=== PATIENT | female | born 1985 | race African-American/Black ===

== ENCOUNTER 2019-06-09 17:27 | Inpatient (IN) ==
[~2019-06-09 17:27] MED LIST: D50W SYRINGE ONE; DEPO-PROVERA IM SCH; HALOPERIDOL DECANOATE 100 MG IM SCH
[2019-06-09] MEDS ORDERED: D50W SYRINGE IV PRN ×2 (17:31)
[2019-06-09] MEDS ORDERED: D5 NS 1,000 ML IV ONE (17:54)
[2019-06-09 17:57] LABS: URINE SOURCE CLEAN CATCH
[2019-06-09 18:00] LABS: BASO# 0.02 X1000 (0.0-0.2); BASO% 0.2 % (0.0-0.8); HEMATOCRIT 42.9 % (37.0-47.0); HEMOGLOBIN 13.9 g/dL (12.0-16.0); IMM GRAN# 0.03 X1000 (0.0-0.04); IMM GRAN% 0.3 % (0.0-0.5); LYMPH# 1.24 X1000 (1.2-3.4); LYMPH% 11.2 % (20.5-51.1); MCH 30.8 PG (27-31); MCHC 32.4 g/dL (33-37); MCV 94.9 FL (81-99); MONO# 0.53 X1000 (0.11-0.59); MONO% 4.8 % (1.7-9.3); NEUT# 9.24 X1000 (1.4-6.5); NEUT% 83.5 % (42.2-75.2); PLT 280 X1000 (130-400); RBC 4.52 XMIL (4.2-5.4); RDW 12.3 % (11.5-14.5); WBC 11.06 X1000 (4.8-10.8)
[2019-06-09 18:09] LABS: AGAP 12; ALBUMIN 3.8 g/dL (3.5-5.0); ALKALINE PHOSPHATASE 59 U/L (32-104); BUN 10 mg/dL (8-22); CALCIUM 8.7 mg/dL (8.8-10.2); CHLORIDE 105 mmol/L (98-107); COSMO 290; CREATININE 0.5 mg/dL (0.5-0.9); ESTIMATED GFR > 60; GLUCOSE 375 mg/dL (70-104); GOT 19 U/L (10-30); GPT 10 U/L (10-36); POTASSIUM 5.2 mmol/L (3.5-5.1); SODIUM 138 mmol/L (136-145); TCO2 21 mmol/L (25-35); TOTAL PROTEIN 6.8 g/dL (6.3-8.3)
[2019-06-09 18:22] LABS: BILIRUBIN URINE NEGATIVE (NEGATIVE); BLOOD URINE NEGATIVE (NEGATIVE); COLOR YELLOW; GLUCOSE URINE 500 mg/dL (NEGATIVE); KETONE URINE NEGATIVE (NEGATIVE); LEUKOCYTES URINE LARGE (NEGATIVE); NITRITE URINE NEGATIVE (NEGATIVE); PH URINE 8.5; PROTEIN URINE TRACE mg/dL (NEGATIVE); SP GRAVITY URINE 1.018; TURBIDITY URINE HAZY (CLEAR); UROBILINOGEN URINE NORMAL (NORMAL)
[2019-06-09 18:24] LABS: UR EPITHELIAL CELLS <10 /HPF (<10); URINE BACTERIA 4+ /HPF; URINE RBC <10 /HPF (<10); URINE WBC 20-40 /HPF (<10)
[2019-06-09] MEDS ORDERED: CLINDAMYCIN 600 MG/D5W 600 MG/50 ML IVPB IV ONE (18:29)
--- NOTE | 2019-06-09 18:30 | PROVIDER DOCUMENTATION ---
This chart was entered by Karla Friend Scribe, acting as scribe for Hung Gregorio MD. HPI-General Adult - General Chief Complaint: Low Blood Sugar Stated Complaint: Hypoglycemia Time Seen by Provider: 06/09/19 17:28 Source: EMS Allergies/Adverse Reactions: Patient Allergies Allergy/AdvReac Type Severity Reaction Status Date / Time cefaclor [From Ceclor] Allergy Unknown Verified 06/09/19 17:42 Home Medications: Home Medication List Medication Instructions Recorded Confirmed Last Taken Type Carbamazepine Chew [Tegretol] 100 mg PO BID 02/11/16 04/25/16 02/11/16 19:00 History Clonidine [Catapres] 0.1 mg PO DIRECTED PRN PRN 02/11/16 04/25/16 Unknown History Divalproex [Depakote] 1,500 mg PO TID 02/11/16 04/25/16 02/11/16 19:00 History Escitalopram Oxalate [Lexapro] 10 mg PO DAILY 02/11/16 04/25/16 02/11/16 07:00 History Haloperidol [Haldol] 10 mg PO BID 02/11/16 04/25/16 02/11/16 07:00 History Imipramine HCl 5 mg PO TID 02/11/16 04/25/16 02/11/16 19:00 History Insulin Degludec [Tresiba 40 unit SQ DAILY 02/11/16 04/25/16 02/11/16 19:00 History Flextouch U-200] Insulin Lispro [Humalog] 12 units SQ AC 02/11/16 04/25/16 02/11/16 17:00 History Lisinopril 2.5 mg PO DAILY 02/11/16 04/25/16 02/11/16 07:00 History Magnesium Citrate [Citrate of 300 ml PO ONCE #1 bottle 02/11/16 04/25/16 Unknown Rx Magnesia] Medroxyprogesterone Acetate 150 mg IM DIRECTED 02/11/16 04/25/16 02/11/16 07:00 History [Depo-Provera] Oxybutynin Chloride [Oxybutynin 5 mg PO BID 02/11/16 04/25/16 02/11/16 19:00 History Chloride ER] Pantoprazole [Protonix] 40 mg PO DAILY@0700 02/11/16 04/25/16 02/11/16 07:00 History Polyethylene Glycol 3350 [Miralax] 17 gm PO DAILY #14 powd.pack 02/11/16 04/25/16 Unknown Rx Propranolol HCl 10 mg PO DAILY 02/11/16 04/25/16 02/11/16 07:00 History Risperidone [Risperdal] 2 mg PO BID 02/11/16 04/25/16 02/11/16 19:00 History Simethicone [Gas-X] 125 mg PO TID #14 capsule 02/11/16 04/25/16 Unknown Rx Ibuprofen [Motrin] 400 mg PO Q6H PRN PRN #20 tablet 12/04/16 Unknown Rx - History of Present Illness -Gen Adult Nature of Presenting Problems: Patient is a 34 year old female who presents to the ED via EMS with low blood sugar. EMS states patient's FSBS was 26 on their arrival. long term workers states patient refused to eat lunch today. furniture lumber production worker reports patient's Lantus dose was reduced recently to 18u due to the patient's blood sugar dropping. History of cerebral palsy. High functioning. Quality of Pain: reports: none Severity: reports: mild Onset/Duration: reports: just prior to arrival Timing: reports: improving Context/Activities at Onset: reports: light activity Associated Symptoms: reports: denies symptoms Similar Symptoms Previously?: Yes Recently seen or treated by another doctor?: Yes - Diabetes Related Context Context: reports: low blood sugar Review of Systems - Adult - REVIEW OF SYSTEMS - ADULT ROS:: unobtainable per condition Constitutional: reports: no symptoms reported Eyes: reports: no symptoms reported Ears, Nose, Mouth & Throat: reports: no symptoms reported Cardiovascular: reports: no symptoms reported Respiratory: reports: no symptoms reported Gastrointestinal: reports: no symptoms reported Genitourinary: reports: no symptoms reported Musculoskeletal: reports: no symptoms reported Integumentary: reports: no symptoms reported Neurological: reports: no symptoms reported Psychiatric: reports: no symptoms reported Endocrine: reports: no symptoms reported Hematologic/Lymphatic: reports: no symptoms reported Allergic/Immunologic: reports: no symptoms reported All Other Systems: Reviewed and Negative Past History - Adult - PAST MEDICAL HISTORY-ADULT Review of Records: reports: Old Records Reviewed, Nursing Assessment Review, Medications Reviewed, Social history reviewed & non-contributory. Major Childhood Illnesses: reports: denies history Cardiovascular: reports: HTN Respiratory: reports: denies history Gastrointestinal: reports: IBS Obstetrical/Gynecological: reports: denies history Genitourinary: reports: denies history Musculoskeletal: reports: denies history Neurological: reports: Seizures/Epilepsy Psychiatric: reports: bipolar, schizophrenia Endocrine/Immune: reports: Diabetes Other Conditions: reports: other (cerebral palsy) - PRIOR SURGERIES/PROCEDURES Surgical/Procedure History: reports: reviewed, not pertinent - IMMUNIZATION STATUS Childhood Immunizations: See Nurse Assessment Flu Vaccine: See Nurse Assessment - FAMILY HISTORY Family History: reviewed, not pertinent - SOCIAL HISTORY Smoking: denies Substance Use: denies Living Situation: group Physical Exam-General - PHYSICAL EXAM-ADULT Initial Vital Signs Reviewed: Yes - CONSTITUTIONAL General Appearance: alert, no apparent distress, lethargic (INITALLY LETHARGIC A ND POORLY RESPONSIVE BUT BRIGHTENED UP QUICKLY AFTER IV ESTABLISHED AND D25 GIVEN.) - EYES Eyes: PERRL/EOMI - HEAD, EARS, NOSE, MOUTH & THROAT HENMT: normocephalic/atraumatic, moist mucous membranes - NECK Neck: full range of motion - RESPIRATORY Respiratory: chest non-tender, lungs clear, normal breath sounds - CARDIOVASCULAR Cardiovascular: regular rate, rhythm, no gallop, no murmur - GASTROINTESTINAL (ABDOMEN) Abdominal Exam: normal bowel sounds, non tender, soft - MUSCULOSKELETAL Extremity: normal inspection, no pedal edema - SKIN Integumentary: normal color, normal turgor, warm/dry - NEUROLOGIC Neurologic: pulper II-XII nml as tested, grossly normal, no motor/sensory deficits - PSYCHIATRIC Psych/Mental Status: normal mood/affect, oriented x 3, other (WAKING BACK UP, SOMEWHAT FEARFUL.) Progress - PLAN OF CARE/RESULTS Progress/Plan/Lab Results: Vital Signs - 8 hr 06/09/19 17:27 Temperature 96.2 F L Pulse Rate 93 H Respiratory Rate 21 Blood Pressure 101/72 O2 Sat by Pulse Oximetry 98 Orders Category Date Time Status FSBS/Accucheck Result Q15M Care 06/09/19 17:32 Active Hypoglycemia/FSBS <50 or Range of 50-70 PRN Care 06/09/19 17:32 Active Notify Physician ORDERED Care 06/09/19 17:32 Active Saline Loc DIRECTED Care 06/09/19 17:32 Active Dextrose 50% Syringe [D50w Syringe] Med 06/09/19 17:31 Active 25 ml IV PRN PRN Dextrose 50% Syringe [D50w Syringe] Med 06/09/19 17:14 Discontinued 50 ml .ROUTE .STK-MED ONE Dextrose 50% Syringe [D50w Syringe] Med 06/09/19 17:31 Active 50 ml IV PRN PRN Hypoglycemia Stat Oth 06/09/19 17:31 Ordered Result Diagrams: 06/09/19 17:40 06/09/19 17:40 - REASSESSMENT Reassessment #1 Time Reassessed: 18:29 Status: unchanged (clindamycin chosen for UTI as allergic to cefaclor) Departure - Departure Date of Disposition Decision: 06/09/19 Time of Disposition Decision: 18:27 DIAGNOSIS: Hypoglycemia due to insulin, UTI (urinary tract infection) Disposition: ADMITTED INPATIENT 09 Certified Medical Emergency: Emergent Condition: Stable - Critical Care Note This patient required my direct & personal management of CC.: No Attestation - Physician/ SYLVIA Attestation The physician spent face to face time with patient:: Yes Advanced Practice Provider documentation review:: Supervising physician onsite and consulted in the evaluation and care of this patient. The physician did have a face to face encounter with the patient. This chart was documented by the indicated scribe, (Karla Friend Scribe) and accurately reflects the services I performed and decisions made by me, Hung Delgadillo MD, as attested by the provider's signature.
[2019-06-09] MEDS ORDERED: D50W SYRINGE IV ONE (18:46)
[2019-06-09] MEDS ORDERED: ZOFRAN IV PRN (18:47)
[2019-06-09] MEDS ORDERED: TYLENOL PO PRN (18:47)
[2019-06-09] MEDS: ZOSYN 3.375 GM in NS 50 ML IV SCH (23:06)
[2019-06-10] MEDS: ZOSYN 3.375 GM in NS 50 ML IV SCH ×3 (01:07→12:59)
[2019-06-10] MEDS ORDERED: MOTRIN PO PRN (08:40)
[2019-06-10] MEDS ORDERED: ZYPREXA ZYDIS PO PRN (08:40)
[2019-06-10] MEDS ORDERED: MIRALAX PO PRN (08:40)
[2019-06-10] MEDS ORDERED: ROBITUSSIN-DM PO PRN (08:40)
[2019-06-10] MEDS ORDERED: IMODIUM PO PRN (08:40)
[2019-06-10] MEDS ORDERED: BENADRYL PO PRN (08:40)
[2019-06-10] MEDS ORDERED: DEPO-PROVERA IM SCH (09:00)
[2019-06-10] MEDS: TEGRETOL PO SCH ×2 (10:15→22:40)
[2019-06-10] MEDS: INDERAL PO SCH (10:15)
[2019-06-10] MEDS: HALDOL PO SCH (10:15)
[2019-06-10] MEDS: RISPERDAL PO SCH ×2 (10:16→22:39)
[2019-06-10] MEDS: LONITEN PO SCH (10:16)
[2019-06-10] MEDS: LEXAPRO PO SCH (10:16)
[2019-06-10] MEDS ORDERED: HUMALOG (PARKWAY) SUBQ SCH (11:00)
[2019-06-10] MEDS: HUMALOG (PARKWAY) SUBQ SCH ×3 (13:00→22:43)
--- NOTE | 2019-06-10 13:50 | Diag Imaging Result Doc PS360 ---
KUB ABDOMEN - 06/10/2019 INDICATION: Abd pain COMPARISON: 02/11/2016 FINDINGS: There are numerous very gas-distended loops of small bowel and colon. There is significant rectal stool impaction. There is a rectal stool ball measuring 8.4 cm. No free air. IMPRESSION: Significant rectal stool impaction. Diffuse hyperinflation of all the bowel suggest ileus or partial obstruction as a result. Electronically signed by Chuy Samayoa 06/10/2019 1:48 PM
--- NOTE | 2019-06-10 20:03 | PROGRESS NOTE ---
DATE: 06/10/2019 SUBJECTIVE: The patient this morning has no complaints. She has not eaten yet. PHYSICAL EXAM: Vital signs: Temperature 98 degrees, pulse 110, respiratory 18, BP 106/69. General: The patient is pleasant. She is in no respiratory distress. She is awake, alert. HEENT: Normocephalic. Neck: Supple. Cardiovascular: Regular rate. Chest: Clear, nonlabored. No wheezing. Abdomen: Soft, nondistended. Extremities: Moves all extremities. ASSESSMENT: 1. Presumed urinary tract infection. Currently, she is growing gram-negative rods per her culture. 2. Hypoglycemic episode. Certainly, could have contributed by her urinary tract infection causing her to not want to eat or drink. 3. Hypertension. 4. Diabetes. 5. Cerebral palsy. PLAN: We are going to continue the patient in the hospital. Continue antibiotics. We will restart her insulin if she eats breakfast and we will follow. We will recheck her labs in the morning to make sure that her hyperkalemia has resolved. cc: Quinn Krishna MD
--- NOTE | 2019-06-10 20:32 | HISTORY AND PHYSICAL ---
ADDENDUM: Patient seen and examined in the ER. She was noted to have blood sugars secondary to taking insulin without eating. HISTORY OF PRESENT ILLNESS: Patient is a 34-year-old female who presented to the hospital with hypoglycemic episode. Blood sugar was 26 upon arrival with EMS. long-term workers noted that the patient had taken her Lantus in the morning. Did not eat any breakfast, refused to eat lunch, and then at night when they checked her sugar it was low. ALLERGIES: Ceclor. MEDICATIONS: Do not have a current active medication list. We will adjust when the [facility] provides such. REVIEW OF SYSTEMS: Difficult to obtain from Ms. Broderick, although the [facility] denies any recent fevers, chills, cough, congestion. Denies any recent GI or issues. PAST MEDICAL HISTORY: Hypertension, IBS, history of seizures, bipolar, schizophrenia, diabetes, cerebral palsy. FAMILY HISTORY: Noncontributory. SOCIAL HISTORY: She does not smoke, drink, or use illicit substances. She currently is a resident of the [facility]. PHYSICAL EXAMINATION: VITAL SIGNS: Reviewed. Temperature 96 degrees, pulse 93, respiratory rate 20, BP 101/72, saturation 98% on room air. GENERAL: Patient is pleasant. She is awake. She is in no distress. HEENT: Normocephalic. NECK: Supple. CARDIOVASCULAR: Regular rate. No murmurs. CHEST: Clear, nonlabored. ABDOMEN: Soft, nondistended. EXTREMITIES: Moves all extremities. NEUROLOGIC: No changes. ASSESSMENT: 1. Significant hypoglycemia. Resolved. At the moment glucose is 375. 2. Diabetes. 3. Bipolar with schizophrenia. 4. Seizures. 5. Cerebral palsy. 6. Hypertension. PLAN: We are going to admit the patient in the hospital, place her on hypoglycemic protocol, continue to follow. We are going to hold her insulin tonight as it is essentially bedtime and she still is not eager to eat. We will continue to follow. cc: Quinn Krishna MD
[2019-06-10] MEDS: DDAVP PO SCH (22:37)
[2019-06-10] MEDS: DITROPAN XL PO SCH (22:38)
[2019-06-10] MEDS: DEPAKOTE PO SCH (22:40)
[2019-06-10] MEDS: ATIVAN PO SCH (22:40)
[2019-06-10] MEDS: CATAPRES PO SCH (22:41)
[2019-06-10] MEDS: LANTUS INSULIN SUBQ SCH (22:42)
[2019-06-11] MEDS: ZOSYN 3.375 GM in NS 50 ML IV SCH ×4 (00:46→20:39)
[2019-06-11 06:06] LABS: HEMATOCRIT 37.8 % (37.0-47.0); MCH 30.5 PG (27-31); MCHC 31.7 g/dL (33-37); MCV 95.9 FL (81-99); MPV 10.1 FL (7.4-10.4); RBC 3.94 XMIL (4.2-5.4); RDW 12.2 % (11.5-14.5); WBC 5.45 X1000 (4.8-10.8)
[2019-06-11 06:22] LABS: AGAP 11; ALBUMIN 3.4 g/dL (3.5-5.0); ALKALINE PHOSPHATASE 54 U/L (32-104); BUN 14 mg/dL (8-22); CALCIUM 8.5 mg/dL (8.8-10.2); CHLORIDE 103 mmol/L (98-107); COSMO 285; CREATININE 0.6 mg/dL (0.5-0.9); ESTIMATED GFR > 60; GLUCOSE 283 mg/dL (70-104); GOT 16 U/L (10-30); GPT 12 U/L (10-36); MAGNESIUM 1.7 mg/dL (1.5-2.7); POTASSIUM 4.7 mmol/L (3.5-5.1); SODIUM 137 mmol/L (136-145); TCO2 23 mmol/L (25-35); TOTAL PROTEIN 6.1 g/dL (6.3-8.3)
[2019-06-11] MEDS: DDAVP PO SCH ×2 (06:40→20:40)
[2019-06-11] MEDS: PROTONIX PO SCH (06:41)
[2019-06-11] MEDS: HUMALOG (PARKWAY) SUBQ SCH ×4 (06:44→22:56)
[2019-06-11] MEDS ORDERED: VITAMIN D PO SCH (09:00)
[2019-06-11] MEDS: HALDOL PO SCH (10:19)
[2019-06-11] MEDS: TEGRETOL PO SCH ×2 (10:19→20:39)
[2019-06-11] MEDS: INDERAL PO SCH (10:19)
[2019-06-11] MEDS: RISPERDAL PO SCH ×2 (10:19→20:40)
[2019-06-11] MEDS: LEXAPRO PO SCH (10:20)
[2019-06-11] MEDS: LONITEN PO SCH (10:20)
--- NOTE | 2019-06-11 18:39 | Diag Imaging Result Doc PS360 ---
EXAM: CT ABD/PELVIS W/PO AND IV CON - 06/11/2019 HISTORY: Ileus vs Obstruction TECHNIQUE: CT abdomen/pelvis with oral and intravenous contrast COMPARISON: 06/10/2019 KUB abdomen FINDINGS: Included sections of the lung bases show mild interstitial marking prominence and tiny pleural effusions. There are no substantial abnormalities of the liver, spleen, adrenal glands, or pancreas identified. The gallbladder is contracted, but there are no calcified gallstones or gross pericholecystic inflammation identified. The bilateral kidneys enhance homogeneously. There is no hydronephrosis. There are mildly prominent mesenteric lymph nodes. The stomach is distended with retained debris. There is diffuse distention of the colon. There is retained fecal debris in the rectum, but this appears to have decreased compared to the recent KUB abdomen. There is no discrete contact obstructing lesion identified. There is mild distention of proximal small bowel, but there is no discrete small bowel obstruction. There is passage of oral contrast to the colon. The appendix is not discretely visualized. There is a small amount of free fluid in the pelvis. There is no free air or abscess identified. There is no discrete pelvic mass identified. IMPRESSION: Distended stomach with retained debris. Diffuse distention of colon. No discrete colonic obstructing lesion identified. There is retained fecal debris in the rectum which appears to have decreased compared to recent KUB abdomen. Small amount of free fluid in pelvis. No free air. No abscess. Mildly prominent mesenteric lymph nodes, which can be seen with mesenteric adenitis. Mild prominence of pulmonary basilar interstitial markings and tiny pleural effusions. This exam was performed using automated exposure control, adjustment of mA or kV according to patient size, and/or use of iterative reconstruction technique. Electronically signed by Keo Allan 06/11/2019 6:37 PM
--- NOTE | 2019-06-11 19:22 | PROGRESS NOTE ---
DATE: 06/11/2019 SUBJECTIVE: Patient herself has no new complaints. Does have some constipation, but this seems to be chronic. OBJECTIVE: Vital signs: Reviewed. Temperature 97 degrees, pulse 92, respiratory rate 18, BP 126/74. General: Patient is pleasant, in no distress. HEENT: Normocephalic. Neck: Supple. CV: Regular rate. Chest: Clear. Abdomen: Soft. Extremities: Moves all extremities. ASSESSMENT: 1. Proteus mirabilis urinary tract infection, resistant to Macrobid, otherwise pansensitive. 2. Significant constipation, with retained fecal debris in the rectum which has somewhat decreased from the recent KUB. 3. Diabetes, with current hyperglycemia. She actually got admitted secondary to hypoglycemia. 4. Bipolar with schizophrenia. 5. Seizures. 6. Cerebral palsy. PLAN: We are going to continue the patient in the hospital today, watch her bowel habits. If that improves, hopefully she can discharge home tomorrow. cc: Quinn Krishna MD
[2019-06-11] MEDS: DITROPAN XL PO SCH (20:39)
[2019-06-11] MEDS: DEPAKOTE PO SCH (20:40)
[2019-06-11] MEDS: CATAPRES PO SCH (20:40)
[2019-06-11] MEDS: ATIVAN PO SCH (20:40)
[2019-06-11] MEDS: LANTUS INSULIN SUBQ SCH (22:57)
[2019-06-12] MEDS: ZOSYN 3.375 GM in NS 50 ML IV SCH ×2 (01:04→06:00)
[2019-06-12 05:12] VITALS: BP 120/73
[2019-06-12] MEDS: DDAVP PO SCH (06:30)
[2019-06-12] MEDS: PROTONIX PO SCH (06:30)
[2019-06-12] MEDS: HUMALOG (PARKWAY) SUBQ SCH ×3 (06:30→13:23)
[2019-06-12] MEDS: LEXAPRO PO SCH (10:32)
[2019-06-12] MEDS: LONITEN PO SCH (10:32)
[2019-06-12] MEDS: RISPERDAL PO SCH (10:33)
[2019-06-12] MEDS: HALDOL PO SCH (10:33)
[2019-06-12] MEDS: INDERAL PO SCH (10:33)
[2019-06-12] MEDS: TEGRETOL PO SCH (10:33)
--- NOTE | 2019-06-12 20:34 | DISCHARGE SUMMARY ---
ADMISSION DATE: 06/09/2019 DISCHARGE DATE: 06/12/2019 PRIMARY CARE PHYSICIAN: None. ADMISSION DIAGNOSES: 1. Significant hypoglycemia, resolved. 2. Bipolar with schizophrenia. 3. Seizures. 4. Cerebral palsy. 5. Hypertension. DISCHARGE DIAGNOSES: 1. Proteus mirabilis urinary tract infection, resistant to Macrobid. 2. Significant constipation with retained fecal debris in the rectum, which is somewhat decreased from the recent KUB. 3. Diabetes with hyperglycemia. She was admitted initially for hypoglycemia, bipolar with schizophrenia, seizures, and cerebral palsy summary. SUMMARY OF FINDINGS: This is a 34-year-old female who presents with a low blood sugar of 26 via EMS. Her electrical linesworker noted that she had taken her Lantus that morning but did not eat breakfast and refused to eat lunch and, that night when they checked her sugar, it was low. She was admitted, placed on our hypoglycemia protocol but became hyperglycemic. Her abdomen x-ray showed significant rectal stool impaction and diffuse hyperinflation of all the bowel, that suggested an ileus or partial obstruction so we obtained a CT of the abdomen and pelvis that showed an impression of a distended stomach with retained debris, diffuse distention of the colon, but no colonic obstruction identified. The retained fecal debris in the rectum appeared to have decreased compared to the recent KUB. No abscess so it is now felt that she can safely be discharged back to the correction today. DISCHARGE MEDICATIONS: Will include Tegretol 200 mg p.o. b.i.d., clonidine 0.1 mg p.o. at bedtime, desmopressin 0.1 mg p.o. daily and 0.2 mg p.o. at bedtime. Diphenhydramine 25 mg p.o. q.4 hours p.r.n., divalproex 1500 mg p.o. at bedtime, vitamin D2, 1200 mcg as directed, Lexapro 20 mg p.o. daily, Robitussin DM 10 mL p.o. q.4 hours p.r.n., Haldol Decanoate 100 mg IM q.30 days, Haldol 10 mg p.o. daily, ibuprofen 200 mg p.o. q.4 hours p.r.n., Lantus SoloSTAR 18 units subcutaneous at bedtime, lisinopril 2.5 mg p.o. daily, loperamide 2 mg p.o. p.r.n., Ativan 1 mg p.o. at bedtime, Depo-Provera 150 mg IM q.90 days, olanzapine 5 mg p.o. b.i.d. p.r.n., oxybutynin chloride 30 mL p.o. at bedtime, pantoprazole 40 mg p.o. daily, MiraLAX 17 g p.o. b.i.d. p.r.n., propranolol 10 mg p.o. daily, risperidone 1 mg p.o. b.i.d., and Flonase 1 spray nasally daily p.r.n. and a NovoLog FlexPen per sliding scale. FOLLOWUP INSTRUCTIONS: She needs to follow up with her primary care physician in the next 1 to 2 weeks and call their office for an appointment. TIME SPENT: 35 minutes. Dictated by DANNY Eden for Quinn Krishna MD cc: DANNY Eden MD
--- NOTE | 2019-06-13 04:07 | DISCHARGE SUMMARY ---
ADMISSION DATE: 06/09/2019 DISCHARGE DATE: 06/12/2019 ADDENDUM: Patient seen and examined by myself. Full note dictated and discussed with nurse practitioner. On discharge, patient is awake, alert. She has had several bowel movements. She is eating breakfast without any difficulty. The staff notes that she is back to her normal self and therefore she will be discharged to her senior living. She does have Proteus mirabilis in her urine and will be discharged with antibiotics. cc: Quinn Krishna MD
== END 2019-06-12 13:45 | disposition home or self-care (01) | DRG 638 ==
LOC: P.ED 17:27 → P.MEDSURG 20:18
PROVIDERS: ATTEND Family Medicine

== ENCOUNTER 2019-06-25 14:07 | Inpatient (IN) ==
[~2019-06-25 14:07] MED LIST changes: +D50W SYRINGE IV ONE; -D50W SYRINGE ONE; -DEPO-PROVERA IM SCH; +GLUCAGON IM ONE; +GLUCAGON ONE; -HALOPERIDOL DECANOATE 100 MG IM SCH; +NS 1,000 ML IV ONE; +XYLOCAINE 1%/EPI 1:100,000 ONE
[2019-06-25 14:18] LABS: BE -0.4 mmoll (-3.0-3.0); BLOOD TYPE ARTERIAL; HCO3-(ACT) 24.5 mmoll (20.0-26.0); METHB 0.7 % (0.0-1.5); O2HB 92.9 % (95.0-99.0); PCO2(98.6) 38 mmHg (35-45); PO2(98.6) 72 mmHg (60-100); SAMPLE BLOOD; SAO2 94.7 % (95.0-100.0); pH(98.6) 7.41 (7.35-7.45)
[2019-06-25 14:20] LABS: ALLEN TEST NO; MODALITY ROOM AIR
[2019-06-25 14:26] LABS: BASO# 0.02 X1000 (0.0-0.2); BASO% 0.2 % (0.0-0.8); HEMATOCRIT 38.7 % (37.0-47.0); HEMOGLOBIN 12.6 g/dL (12.0-16.0); IMM GRAN# 0.04 X1000 (0.0-0.04); IMM GRAN% 0.4 % (0.0-0.5); LYMPH# 1.79 X1000 (1.2-3.4); LYMPH% 16.1 % (20.5-51.1); MCH 31.3 PG (27-31); MCHC 32.6 g/dL (33-37); MCV 96.3 FL (81-99); MONO# 0.87 X1000 (0.11-0.59); MONO% 7.8 % (1.7-9.3); MPV 9.7 FL (7.4-10.4); NEUT# 8.39 X1000 (1.4-6.5); NEUT% 75.5 % (42.2-75.2); PLT 206 X1000 (130-400); RBC 4.02 XMIL (4.2-5.4); RDW 12.4 % (11.5-14.5); WBC 11.11 X1000 (4.8-10.8)
[2019-06-25] MEDS ORDERED: XYLOCAINE-MPF 1% INJ ONE (14:29)
[2019-06-25 14:47] LABS: ACETONE SERUM NEGATIVE (NEGATIVE)
[2019-06-25 14:50] LABS: AGAP 13; ALBUMIN 3.7 g/dL (3.5-5.0); ALKALINE PHOSPHATASE 60 U/L (32-104); BUN 9 mg/dL (8-22); CALCIUM 8.8 mg/dL (8.8-10.2); CHLORIDE 106 mmol/L (98-107); COSMO 285; CREATININE 0.4 mg/dL (0.5-0.9); ESTIMATED GFR > 60; GLUCOSE 189 mg/dL (70-104); GOT 18 U/L (10-30); GPT 17 U/L (10-36); POTASSIUM 3.7 mmol/L (3.5-5.1); SODIUM 141 mmol/L (136-145); TCO2 23 mmol/L (25-35); TOTAL BILIRUBIN < 0.15 mg/dL (0.20-1.00); TOTAL PROTEIN 6.4 g/dL (6.3-8.3)
--- NOTE | 2019-06-25 15:09 | PROVIDER DOCUMENTATION ---
This chart was entered by Kathy Hinton Scribe, acting as scribe for Santo Mejía MD. HPI-General Adult - General Stated Complaint: UNRESPONSIVE Time Seen by Provider: 06/25/19 13:53 Source: EMS, old records, other (intermediate workers) Unable to obtain history due to:: altered Allergies/Adverse Reactions: Patient Allergies Allergy/AdvReac Type Severity Reaction Status Date / Time cefaclor [From Ceclor] Allergy Unknown Verified 06/09/19 17:42 Home Medications: Home Medication List Medication Instructions Recorded Confirmed Last Taken Type Carbamazepine Chew [Tegretol] 200 mg PO BID 02/11/16 06/25/19 02/11/16 19:00 History Clonidine [Catapres] 0.1 mg PO QHS 02/11/16 06/25/19 Unknown History Divalproex [Depakote] 1,500 mg PO QHS 02/11/16 06/25/19 02/11/16 19:00 History Escitalopram Oxalate [Lexapro] 20 mg PO DAILY 02/11/16 06/25/19 02/11/16 07:00 History Haloperidol [Haldol] 10 mg PO DAILY 02/11/16 06/25/19 02/11/16 07:00 History Lisinopril 2.5 mg PO DAILY 02/11/16 06/25/19 06/25/19 History Medroxyprogesterone Acetate 150 mg IM Q90D 02/11/16 06/25/19 06/25/19 History [Depo-Provera] Pantoprazole [Protonix] 40 mg PO DAILY@0700 02/11/16 06/25/19 06/25/19 History Desmopressin [Ddavp] 0.1 mg PO DAILY@0700 06/09/19 06/25/19 Unknown History Desmopressin [Ddavp] 0.2 mg PO QHS 06/09/19 06/25/19 Unknown History Diphenhydramine [Benadryl] 25 mg PO Q4H PRN PRN 06/09/19 06/25/19 Unknown History Ergocalciferol (Vitamin D2) 1 tab PO DIRECTED 06/09/19 06/25/19 06/04/19 08:00 History [Vitamin D2] Fluticasone 50 Mcg Nasal [place] 1 spray INTRANASAL DAILY PRN PRN 06/09/19 06/25/19 Unknown History [Flonase] Guaifenesin/Dm [Robitussin-Dm] 10 ml PO Q4H PRN PRN 06/09/19 06/25/19 Unknown History Haloperidol Decanoate [Haloperidol 100 mg IM Q30D 06/09/19 06/25/19 05/27/19 08:00 History Decanoate 100] Ibuprofen [Motrin] 200 mg PO Q4H PRN PRN 06/09/19 06/25/19 Unknown History Insulin Aspart [Novolog Flexpen] See Protocol SUBQ AC + HS 06/09/19 06/25/19 Unknown History Insulin Glargine,Hum.rec.anlog 18 unit SQ QAM 06/09/19 06/25/19 06/09/19 08:00 History [Lantus Solostar] 18units Loperamide [Imodium] 2 mg PO PRN PRN 06/09/19 06/25/19 06/25/19 History Lorazepam 1 mg PO QHS 06/09/19 06/25/19 06/25/19 History Olanzapine [Olanzapine Odt] 5 mg PO BID PRN PRN 06/09/19 06/25/19 06/25/19 History Oxybutynin Chloride [Oxybutynin 30 mg PO QHS 06/09/19 06/25/19 06/25/19 History Chloride ER] Polyethylene Glycol 3350 [Miralax] 17 gm PO BID PRN 06/09/19 06/25/19 06/25/19 History Propranolol [Inderal] 10 mg PO DAILY 06/09/19 06/25/19 06/25/19 History Risperidone 1 mg PO BID 06/09/19 06/09/19 Unknown History CefDINIR [Omnicef] 300 mg PO BID #14 cap 06/12/19 Unknown Rx - History of Present Illness -Gen Adult Nature of Presenting Problems: pt is a 34 yof from intermediate that was found unresponsive. pt had refused to take DM rx today. pt fsbs is 20. pt is lethargic and drooling at bedside. pt was recently adm in for hypoglycemia on 06-09. Severity: reports: severe Onset/Duration: reports: just prior to arrival Timing: reports: still present Context/Activities at Onset: reports: none Modifying Factors: improves with: nothing Associated Symptoms: reports: other (low fsbs, unresponsive) Similar Symptoms Previously?: Yes - Diabetes Related Context Context: reports: low blood sugar, unresponsive Review of Systems - Adult - REVIEW OF SYSTEMS - ADULT Constitutional: reports: see HPI, other (unresponsive). denies: chills, fever, fatique Eyes: reports: no symptoms reported Ears, Nose, Mouth & Throat: reports: no symptoms reported Cardiovascular: reports: no symptoms reported Respiratory: reports: no symptoms reported Gastrointestinal: reports: no symptoms reported Genitourinary: reports: no symptoms reported Musculoskeletal: reports: no symptoms reported Integumentary: reports: no symptoms reported Neurological: reports: no symptoms reported Psychiatric: reports: no symptoms reported Endocrine: reports: see HPI, other (low fsbs 20). denies: change in skin pigment, excessive sweating Hematologic/Lymphatic: reports: no symptoms reported Allergic/Immunologic: reports: no symptoms reported All Other Systems: Reviewed and Negative Past History - Adult - PAST MEDICAL HISTORY-ADULT Review of Records: reports: Nursing Assessment Review, Medications Reviewed, Social history reviewed & non-contributory. Major Childhood Illnesses: reports: denies history Cardiovascular: reports: HTN Respiratory: reports: denies history Gastrointestinal: reports: denies history Obstetrical/Gynecological: reports: denies history Genitourinary: reports: denies history Musculoskeletal: reports: denies history Neurological: reports: Seizures/Epilepsy Psychiatric: reports: bipolar, schizophrenia Endocrine/Immune: reports: Diabetes Other Conditions: reports: other (cerebral palsy) - PRIOR SURGERIES/PROCEDURES Surgical/Procedure History: reports: other - IMMUNIZATION STATUS Childhood Immunizations: See Nurse Assessment Flu Vaccine: See Nurse Assessment - FAMILY HISTORY Family History: reviewed, not pertinent - SOCIAL HISTORY Smoking: non-smoker Substance Use: none/never Physical Exam-General - PHYSICAL EXAM-ADULT Initial Vital Signs Reviewed: Yes - CONSTITUTIONAL General Appearance: moderate distress, lethargic, obtunded. negative: appears well, alert, no apparent distress, anxious - EYES Eyes: other (pupils 5mm bilat) - HEAD, EARS, NOSE, MOUTH & THROAT HENMT: normocephalic/atraumatic, moist mucous membranes (pt is drooling excessively) - NECK Neck: non-tender, full range of motion, supple, normal inspection - RESPIRATORY Respiratory: chest non-tender, lungs clear, normal breath sounds, other (no tacypnea, snoring respiraitons) - CARDIOVASCULAR Cardiovascular: normal peripheral pulses, no edema, no gallop, no JVD, no murmur , tachycardia. negative: regular rate, rhythm, extra beats, friction rub, irregularly irregular - GASTROINTESTINAL (ABDOMEN) Abdominal Exam: normal bowel sounds, non tender, soft, other (large pannus) - MUSCULOSKELETAL Back Exam: normal inspection Extremity: normal range of motion, non-tender, normal inspection - SKIN Integumentary: normal color, normal turgor, warm/dry - NEUROLOGIC Neurologic: abnormal cerebellar tests, abnormal specification manager II-XII, other - PSYCHIATRIC Psych/Mental Status: disoriented x 3. negative: normal mood/affect, normal thought content, normal thought process, oriented x 3 Progress - PLAN OF CARE/RESULTS Result Diagrams: 06/25/19 14:10 06/25/19 14:10 - REASSESSMENT Reassessment #1 Time Reassessed: 14:35 Status: other (intermediate workers sts that pt gets insulin before meals. pt did not eat breakfast this am, had insulin, and missed insulin dose at lunch.) Reassessment Comment: RN notes some swallowing difficulty with diet - CONSULTS/PCP/HOSPITALIST Notification #1 *Consult/PCP/Hospitalist*: [place] Time Discussed: 15:07 Consult Disposition: Will see in ED, Admit Procedures - ADDITIONAL PROCEDURES Additional Procedure: Intraosseous Infusion Consent Form Signed if Applicable?: No Time-Out Verification Completed?: No Site Prep: Kit Utilized (xylocaine w/epi) Anesthetic: 1%, Lidocaine w/ Epinephrine Description of Procedure (Other): left proximal tibia 45mm needle, good flush, good aspiration of marrow. Given also 5ml lidocaine without epi, SIVP for pain during infusion of IVF/d50 Departure - Departure Date of Disposition Decision: 06/25/19 Time of Disposition Decision: 15:08 DIAGNOSIS: Type 2 diabetes mellitus with hypoglycemia and coma, with long-term current use of insulin Dysphagia Qualifiers: Dysphagia type: pharyngeal phase Qualified Code(s): R13.13 - Dysphagia, phary ngeal phase Disposition: ADMITTED INPATIENT 09 Certified Medical Emergency: Emergent Condition: Stable - Critical Care Note This patient required my direct & personal management of CC.: No Attestation - Physician/ SYLVIA Attestation Patient care was provided by Advanced Practice Provider:: No The physician spent face to face time with patient:: Yes Advanced Practice Provider documentation review:: Supervising physician onsite and consulted in the evaluation and care of this patient. The physician did have a face to face encounter with the patient. This chart was documented by the indicated scribe, (Kathy Hinton, Jossue) and accurately reflects the services I performed and decisions made by me, Santo Mejía MD, as attested by the provider's signature.
[2019-06-25] MEDS ORDERED: D5 1/2 NS 1,000 ML IV ONE (15:21)
[2019-06-25] MEDS ORDERED: MOTRIN PO PRN (15:21)
[2019-06-25] MEDS ORDERED: ROBITUSSIN-DM PO PRN (15:21)
[2019-06-25] MEDS ORDERED: MIRALAX PO PRN (15:21)
[2019-06-25] MEDS ORDERED: FLONASE NAS PRN (15:21)
[2019-06-25] MEDS ORDERED: IMODIUM PO PRN (15:21)
[2019-06-25] MEDS ORDERED: TYLENOL PO PRN (15:21)
[2019-06-25] MEDS ORDERED: D50W SYRINGE IV PRN (15:21)
[2019-06-25] MEDS ORDERED: BENADRYL PO PRN (15:21)
[2019-06-25] MEDS ORDERED: ZYPREXA ZYDIS PO PRN (15:21)
--- NOTE | 2019-06-25 15:22 | ED EKG INTERP ---
EKG Interpretation - EKG Time of EKG reading by physician:: 15:22 EKG Read and Signed by:: Santo Mejía EKG Interpretation (*Must complete 3 of following elements*): Abnormal Rate: 85 Rhythm: NSR [place]: normal QRS: poor R wave progression DC Interval: normal ST Wave: non-specific ST changes Attestation - Physician/ SYLVIA Attestation Patient care was provided by Advanced Practice Provider:: No The physician spent face to face time with patient:: Yes Advanced Practice Provider documentation review:: Supervising physician onsite and consulted in the evaluation and care of this patient. The physician did have a face to face encounter with the patient.
--- NOTE | 2019-06-25 15:24 | EKG Report ---
Test Performed on : 06/25/2019 3:08:42 PM Test Reason : ams Blood Pressure : / mmHG Vent. Rate : 085 BPM Atrial Rate : 085 BPM P-R Int : 130 ms QRS Dur : 088 ms QT Int : 378 ms P-R-T Axes : 007 -18 113 degrees QTc Int : 449 ms Normal sinus rhythm. T wave abnormality, consider lateral ischemia Abnormal ECG No previous ECGs available Unconfirmed Result
[2019-06-25 15:28] LABS: URINE SOURCE CATH
[2019-06-25 15:41] LABS: BILIRUBIN URINE NEGATIVE (NEGATIVE); BLOOD URINE NEGATIVE (NEGATIVE); COLOR YELLOW; GLUCOSE URINE >1000 mg/dL (NEGATIVE); KETONE URINE NEGATIVE (NEGATIVE); LEUKOCYTES URINE NEGATIVE (NEGATIVE); NITRITE URINE NEGATIVE (NEGATIVE); PH URINE 6.5; PROTEIN URINE NEGATIVE (NEGATIVE); SP GRAVITY URINE 1.019; TURBIDITY URINE CLEAR (CLEAR); UROBILINOGEN URINE NORMAL (NORMAL)
[2019-06-25 15:43] LABS: UR EPITHELIAL CELLS <10 /HPF (<10); URINE BACTERIA NEGATIVE /HPF; URINE RBC <10 /HPF (<10); URINE WBC <10 /HPF (<10)
[2019-06-25 15:48] LABS: UR AMPHETAMINES QUAL NONE DETECTED (NONE DETECT); UR BARBITUATES QUAL NONE DETECTED (NONE DETECT); UR BENZODIAZEPIN QUAL PRESUMPTIVE POSITIVE (NONE DETECT); UR CANNABINOIDS QUAL NONE DETECTED (NONE DETECT); UR COCAINE QUAL NONE DETECTED (NONE DETECT); UR METHADONE QUAL NONE DETECTED (NONE DETECT); UR METHAMPHETAMINE QUAL NONE DETECTED (NONE DETECT); UR OPIATES QUAL NONE DETECTED (NONE DETECT); UR OXYCODONE QUAL NONE DETECTED (NONE DETECT); UR PCP QUAL NONE DETECTED (NONE DETECT); UR PROPOXYPHENE QUAL NONE DETECTED (NONE DETECT); UR TCA QUAL NONE DETECTED (NONE DETECT)
--- NOTE | 2019-06-25 16:11 | Diag Imaging Result Doc PS360 ---
EXAM: CHEST-PORTABLE - 06/25/2019 HISTORY: ams TECHNIQUE: Portable chest COMPARISON: 02/11/2016 FINDINGS: Heart size is normal. Inspiration is mildly shallow. The lungs appear essentially clear. There is no pleural effusion or pneumothorax identified. There is apparent upper thoracic levoscoliosis noted, and there is a cervical rib noted at C7 on the right. IMPRESSION: Mildly shallow inspiration. No other evidence of acute disease. Electronically signed by Keo Allan 06/25/2019 4:09 PM
[2019-06-25] MEDS ORDERED: VITAMIN D PO SCH (20:00)
[2019-06-25] MEDS: DEPAKOTE PO SCH (20:56)
[2019-06-25] MEDS: ATIVAN PO SCH (20:56)
[2019-06-25] MEDS: DITROPAN XL PO SCH (20:56)
[2019-06-25] MEDS: CATAPRES PO SCH (20:56)
[2019-06-25] MEDS: TEGRETOL PO SCH (20:57)
[2019-06-25] MEDS: DDAVP PO SCH (20:57)
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
--- NOTE | 2019-06-26 05:50 | HISTORY AND PHYSICAL ---
CHIEF COMPLAINT: Unresponsive. HISTORY OF PRESENT ILLNESS: The patient is a 34-year-old female who lives at a retirement. She was given her insulin this morning, and apparently did not eat breakfast. When they rechecked her blood sugar before lunch when she was found to be slowly responsive, lethargic and drooling. Her blood sugars were 20. ALLERGIES: Crestor. MEDICATIONS: 1. Tegretol 200 b.i.d. 2. Catapres 0.1 at bedtime. 3. Depakote 1500 at bedtime. 4. Lexapro 20. 5. Haldol 10. 6. Lisinopril 2.5. 7. Depo Provera. 8. Protonix. 9. DDAVP. 10. Haldol. 11. Motrin. 12. 18 units of insulin [*] Lantus daily. 13. Zyprexa. REVIEW OF SYSTEMS: Basically unobtainable from Ms. Broderick due to her mental impairment. However, the family notes that yesterday she was fine. She had no complaints. She was eating normally. She refused to eat earlier, but had already been given her insulin. PAST MEDICAL HISTORY: Hypertension, seizures, schizophrenia, diabetes, bipolar, and cerebral palsy. FAMILY HISTORY: Noncontributory. SOCIAL HISTORY: She lives in a retirement. She does not smoke or drink. PHYSICAL EXAMINATION: Vital signs reviewed. He is currently afebrile. Pulse is regular and respiratory 20. GENERAL: Patient is still lethargic. She is in moderate distress. She is in no current respiratory distress. HEENT: Normocephalic. NECK: Supple. CV: Regular rate. No murmurs. LUNGS: Chest clear. Nonlabored. No wheezing. Positive tachypnea. ABDOMEN: Soft and nondistended. EXTREMITIES: Moves all extremities. ASSESSMENT: 1. Diabetes with iatrogenically induced hypoglycemia. 2. Schizophrenia. 3. Cerebral palsy. PLAN: We are going to admit patient to hospital. IV fluids. We will advance diet as tolerated. We will obviously hold all anti hypoglycemics. We will begin discussing with the retirement that they should break her insulin in half, and not give her the full dose each morning. Also, given her proclivity to refuse to eat, they should wait until she eats before giving her insulin and hold if she refuses. cc: Quinn Krishna MD
[2019-06-26 06:16] LABS: BASO# 0.01 X1000 (0.0-0.2); BASO% 0.2 % (0.0-0.8); EOS# 0.01 X1000 (0.0-0.7); EOS% 0.2 % (0.0-10.0); HEMATOCRIT 35.7 % (37.0-47.0); HEMOGLOBIN 11.5 g/dL (12.0-16.0); IMM GRAN# 0.02 X1000 (0.0-0.04); IMM GRAN% 0.3 % (0.0-0.5); LYMPH# 1.69 X1000 (1.2-3.4); MCHC 32.2 g/dL (33-37); MCV 96.2 FL (81-99); MONO# 0.47 X1000 (0.11-0.59); MONO% 7.5 % (1.7-9.3); MPV 9.8 FL (7.4-10.4); NEUT# 4.07 X1000 (1.4-6.5); NEUT% 64.8 % (42.2-75.2); PLT 193 X1000 (130-400); RBC 3.71 XMIL (4.2-5.4); RDW 12.4 % (11.5-14.5); WBC 6.27 X1000 (4.8-10.8)
[2019-06-26 06:45] LABS: AGAP 12; ALBUMIN 3.6 g/dL (3.5-5.0); ALKALINE PHOSPHATASE 57 U/L (32-104); BUN 7 mg/dL (8-22); CALCIUM 8.8 mg/dL (8.8-10.2); CHLORIDE 104 mmol/L (98-107); COSMO 276; CREATININE 0.4 mg/dL (0.5-0.9); ESTIMATED GFR > 60; GLUCOSE 139 mg/dL (70-104); GOT 16 U/L (10-30); GPT 16 U/L (10-36); MAGNESIUM 1.7 mg/dL (1.5-2.7); POTASSIUM 4.3 mmol/L (3.5-5.1); SODIUM 138 mmol/L (136-145); TCO2 21 mmol/L (25-35); TOTAL PROTEIN 6.3 g/dL (6.3-8.3)
[2019-06-26] MEDS ORDERED: TYLENOL PO PRN (06:45)
[2019-06-26] MEDS: HALDOL PO SCH (08:29)
[2019-06-26] MEDS: PROTONIX PO SCH (08:29)
[2019-06-26] MEDS: DDAVP PO SCH ×2 (08:29→21:12)
[2019-06-26] MEDS: TEGRETOL PO SCH ×2 (08:30→21:13)
[2019-06-26] MEDS: LEXAPRO PO SCH (08:30)
[2019-06-26] MEDS: INDERAL PO SCH (08:30)
[2019-06-26] MEDS: PRINIVIL PO SCH (08:31)
[2019-06-26] MEDS ORDERED: LANTUS INSULIN SUBQ SCH (09:00)
--- NOTE | 2019-06-26 10:52 | Diag Imaging Result Doc PS360 ---
EXAM: BA SWALLOW W/VIDEO SPEECH THER HISTORY: dysphagia TECHNIQUE: Modified barium swallow with speech therapist COMPARISON: None. FINDINGS: Fluoroscopy time is one minute 49 seconds. Total dose is 442 cGy square centimeter. Normal passage of barium through the esophagus into the stomach. No obstruction. No aspiration. No coughing occurred during the exam. IMPRESSION: No acute abnormality. Electronically signed by Lewis Escobedo 06/26/2019 10:49 AM
[2019-06-26 12:49] LABS: URINE SOURCE CLEAN CATCH
[2019-06-26 12:58] LABS: BILIRUBIN URINE NEGATIVE (NEGATIVE); BLOOD URINE NEGATIVE (NEGATIVE); COLOR YELLOW; GLUCOSE URINE 300 mg/dL (NEGATIVE); KETONE URINE TRACE mg/dL (NEGATIVE); LEUKOCYTES URINE SMALL (NEGATIVE); NITRITE URINE NEGATIVE (NEGATIVE); PH URINE 6.5; PROTEIN URINE TRACE mg/dL (NEGATIVE); SP GRAVITY URINE 1.025; TURBIDITY URINE CLEAR (CLEAR); UR EPITHELIAL CELLS <10 /HPF (<10); URINE BACTERIA NEGATIVE /HPF; URINE RBC <10 /HPF (<10); URINE WBC <10 /HPF (<10); UROBILINOGEN URINE NORMAL (NORMAL)
--- NOTE | 2019-06-26 17:53 | Diag Imaging Result Doc PS360 ---
EXAM: US ABDOMEN-COMPLETE HISTORY: urinary incontinence TECHNIQUE: Abdominal ultrasound COMPARISON: CT from 06/11/2019 FINDINGS: Normal pancreas. Normal inferior vena cava. No aortic aneurysm. Normal right kidney. No hydronephrosis. There is fatty infiltration of the liver. The gallbladder is contracted. No stones. The common bile duct measures 6 mm. Normal left kidney. No hydronephrosis. Normal spleen. No ascites. IMPRESSION: Fatty infiltration of the liver. Electronically signed by Lewis Escobedo 06/26/2019 5:50 PM
[2019-06-26] MEDS: DITROPAN XL PO SCH (21:10)
[2019-06-26] MEDS: DEPAKOTE PO SCH (21:10)
[2019-06-26] MEDS: CATAPRES PO SCH (21:11)
[2019-06-26] MEDS: ATIVAN PO SCH (21:11)
[2019-06-26] MEDS: LANTUS INSULIN SUBQ SCH (21:19)
--- NOTE | 2019-06-26 23:21 | PROGRESS NOTE ---
DATE: 06/26/2019 SUBJECTIVE: Patient herself appears much more awake, alert. OBJECTIVE: Vital Signs: Reviewed. She is afebrile. Blood pressure is stable. General: Patient is in no current respiratory distress. HEENT: Normocephalic. Neck: Supple. Cardiovascular: Regular rate. Chest: Clear. Abdomen: Soft. Extremities: Moves all extremities. ASSESSMENT: 1. Superior intellectual impairment. 2. Severe hypoglycemia in a patient with type 1 diabetes. 3. Schizophrenia bipolar. 4. Cerebral palsy. PLAN: Given the patient frequently refuses to eat, we are going to change her insulin to twice daily instead of once and after she eats. Therefore, the staff can make the determination. If she eats, they will give her 9 units. If not, they will completely hold her Lantus. cc: Quinn Krishna MD
[2019-06-27 05:13] VITALS: BP 117/71
[2019-06-27 06:20] LABS: BASO# 0.02 X1000 (0.0-0.2); BASO% 0.4 % (0.0-0.8); EOS# 0.02 X1000 (0.0-0.7); EOS% 0.4 % (0.0-10.0); HEMATOCRIT 36.2 % (37.0-47.0); HEMOGLOBIN 11.3 g/dL (12.0-16.0); IMM GRAN# 0.02 X1000 (0.0-0.04); IMM GRAN% 0.4 % (0.0-0.5); LYMPH# 1.56 X1000 (1.2-3.4); LYMPH% 32.2 % (20.5-51.1); MCH 30.1 PG (27-31); MCHC 31.2 g/dL (33-37); MCV 96.5 FL (81-99); MONO# 0.41 X1000 (0.11-0.59); MONO% 8.5 % (1.7-9.3); MPV 9.9 FL (7.4-10.4); NEUT# 2.81 X1000 (1.4-6.5); NEUT% 58.1 % (42.2-75.2); PLT 199 X1000 (130-400); RBC 3.75 XMIL (4.2-5.4); RDW 12.1 % (11.5-14.5); WBC 4.84 X1000 (4.8-10.8)
[2019-06-27 06:31] LABS: AGAP 12; ALBUMIN 3.6 g/dL (3.5-5.0); ALKALINE PHOSPHATASE 58 U/L (32-104); BUN 9 mg/dL (8-22); CALCIUM 8.8 mg/dL (8.8-10.2); CHLORIDE 99 mmol/L (98-107); COSMO 274; CREATININE 0.5 mg/dL (0.5-0.9); ESTIMATED GFR > 60; GLUCOSE 218 mg/dL (70-104); GOT 9 U/L (10-30); GPT 12 U/L (10-36); MAGNESIUM 1.6 mg/dL (1.5-2.7); POTASSIUM 4.5 mmol/L (3.5-5.1); SODIUM 134 mmol/L (136-145); TCO2 23 mmol/L (25-35); TOTAL PROTEIN 6.2 g/dL (6.3-8.3)
[2019-06-27] MEDS: MORPHINE IV PRN ×2 (08:23→08:44)
[2019-06-27] MEDS: PROTONIX PO SCH (08:34)
[2019-06-27] MEDS: DDAVP PO SCH (08:34)
[2019-06-27] MEDS: INDERAL PO SCH (08:34)
[2019-06-27] MEDS: HALDOL PO SCH (08:34)
[2019-06-27] MEDS: LANTUS INSULIN SUBQ SCH (08:35)
[2019-06-27] MEDS: TEGRETOL PO SCH (08:35)
[2019-06-27] MEDS: LEXAPRO PO SCH (08:35)
[2019-06-27] MEDS: PRINIVIL PO SCH (08:35)
--- NOTE | 2019-06-27 14:06 | DISCHARGE SUMMARY ---
ADMISSION DATE: 06/25/2019 DISCHARGE DATE: 06/27/2019 ADMISSION DIAGNOSES: 1. Recurrent hypoglycemia. 2. Diabetes mellitus type 1. 3. Dysphagia. 4. Bipolar schizophrenia. 5. Seizure disorder. 6. Hypertension. DISCHARGE DIAGNOSES: 1. Superior intellectual impairment. 2. Severe hypoglycemia in the setting of type 1 diabetic. 3. Schizophrenia bipolar. 4. Cerebral palsy. CONSULTATIONS: None. SURGERIES AND PROCEDURES: None. HOSPITAL COURSE: Ms. Jennifer Broderick is a 34-year-old, -[place] female with a superior intellectual impairment, schizophrenia bipolar, cerebral palsy and is a type 1 diabetic. She presents with hypoglycemia that she was unresponsive from. Blood sugar apparently is at least down into the 30s and the 20s. She was drooling and unresponsive. She has times where she will refuse to eat and then her insulin causes her to become hypoglycemic. This started late last month and again this month. She was initiated on D5 saline, was given dextrose, and was started back on a diet. Initially, the nurse was concerned as the patient was having difficulties with swallowing and it was thought that maybe this is what was causing her to not eater or skip her meals. She had a barium swallow that revealed normal swallowing patterns and this may just be part of her intellectual impairment where she refuses to eat. So, insulin was then changed to twice a day instead of after meals. DISCHARGE VITAL SIGNS: Temperature 98.2 degrees, heart rate 82, respiratory rate 18, blood pressure 117/71, O2 saturation 100% on room air. DISCHARGE LAB DATA: White blood cells 4,000, hemoglobin 11, hematocrit 36, platelet count 199,000. Sodium 134, potassium 4.5, BUN 9, creatinine 0.5, glucose 218, calcium 8.8, magnesium 1.6, bilirubin 0.30, AST 9, ALT 12, albumin 3.6. TSH was 2.30. Micro, no growth on cultures. PERTINENT IMAGING: On June 25 chest x-ray showed mildly shallow inspiration, no acute disease. Abdominal ultrasound, fatty infiltration of the liver. A modified barium swallow on the June 26, no acute abnormality. EKG normal sinus rhythm, rate 85, QTc was 449. DISCHARGE MEDICATIONS: 1. Insulin glargine 9 units subcutaneous twice a day. 2. Vitamin D2. 3. Tegretol. 4. Guaifenesin. 5. Risperidone. 6. Protonix. 7. Olanzapine. 8. Insulin sliding scale. 9. Ibuprofen. 10. MiraLAX. 11. Lisinopril. 12. Lexapro. 13. Inderal. 14. Imodium. 15. Haldol. 16. Flonase. 17. Medroxyprogesterone acetate. 18. DDAVP. 19. Benadryl. 20. Oxybutynin. 21. Ativan. 22. Depakote. 23. Clonidine. PHYSICIAN FOLLOWUP: None. DISCHARGE ACTIVITY: As tolerated. DISCHARGE DIET: Diabetic diet. WOUND CARE: Keep bandage on left leg for next 2 days for the I and O access was taken out. DISCHARGE INSTRUCTIONS: If your condition changes, contact physician and/or return to emergency department. Changes may include, but not limited to, shortness of breath, increased fatigue, excessive bleeding, unexplained weight loss or gain, unmanageable pain, signs or symptoms of infection. DISCHARGE DISPOSITION: longterm with caretakers. Dictated by DANNY Fuentes for Quinn Krishna MD cc: DANNY Fuentes MD
--- NOTE | 2019-06-28 04:29 | DISCHARGE SUMMARY ---
ADMISSION DATE: 06/25/2019 DISCHARGE DATE: 06/27/2019 ADDENDUM: On discharge, patient is awake, alert. She is in no distress. She did eat breakfast. Given the fact that she [*]and bipolar schizophrenia. We have adjusted her insulin to taking 9 units twice a day of Lantus instead of 18 units daily. Each time she will take her Lantus after she eats. If she does not eat at all, they will hold her Lantus. If she eats roughly 50%, then they will use half or 4 units of Lantus. Otherwise, they will use the full Lantus at 9 units if she eats. cc: Quinn Krishna MD
== END 2019-06-27 14:02 | disposition home or self-care (01) | DRG 638 ==
LOC: P.ED 14:07 → P.MEDSURG 15:51
PROVIDERS: ATTEND Family Medicine